=== PATIENT | female | born 1995 | race Caucasian/White ===

== ENCOUNTER 2021-01-07 02:30 | Emergency (ER) | payer MEDICAID ==
[~2021-01-07] VITALS: Ht 157.5 cm; Wt 65.8 kg
[2021-01-07 02:56] LABS: ABSOLUTE BASOPHILS 0.1 thou/uL (0.0-0.2); ABSOLUTE LYMPHOCYTES 2.1 thou/uL (0.8-5.3); ABSOLUTE MONOCYTES 0.8 thou/uL (0.0-1.2); ABSOLUTE NEUTROPHILS 9.7 thou/uL (1.6-8.1); BASOPHILS 0.4 %; EOSINOPHILS 0.3 %; HEMATOCRIT 40.6 % (37.0-47.0); HEMOGLOBIN 14.2 gm/dL (12.0-15.0); LYMPHOCYTES 16.5 %; MCH 31.1 pg (26.0-34.0); MONOCYTES 6.5 %; NUCLEATED RBCS 0 /100WBC; PLATELET COUNT* 255 thou/uL (150-400); POLYS 76.3 %; RBC 4.57 mil/uL (4.20-5.00); RDW-CV 15.2 % (10.5-14.5); WBC 12.7 thou/uL (4.0-11.0)
[2021-01-07 03:00] LABS: CALCIUM 8.6 mg/dL (8.5-10.1); CREATININE 0.9 mg/dL (0.6-1.3); POTASSIUM 3.4 mmol/L (3.5-5.1)
[2021-01-07 03:05] LABS: ALBUMIN 2.7 g/dL (3.4-5.0); TOTAL BILIRUBIN 0.4 mg/dL (<0.1-1.0); TOTAL PROTEIN 7.1 g/dL (6.4-8.2)
[2021-01-07 03:10] VITALS: BP 133/85
== END 2021-01-07 03:10 | disposition still patient (30) ==
LOC: M.ERS 02:30
PROVIDERS: Emergency Medicine
DX: O62.8 Other abnormalities of forces of labor (principal); Z20.822 Contact with and (suspected) exposure to COVID-19; Z3A.38 38 weeks gestation of pregnancy